=== PATIENT | female | born 1970 | race Caucasian/White ===

== ENCOUNTER → 2018-06-27 | Outpatient (CLI) | payer BC ==
[2018-06-27 10:38] LABS: ALANINE AMINOTRANSFERASE 32 U/L (0-55); ALBUMIN 4.4 GM/DL (3.2-4.5); ALKALINE PHOSPHATASE 52 U/L (40-136); BILIRUBIN,TOTAL 0.9 MG/DL (0.1-1.0); BUN/CREATININE RATIO 18; CALCIUM 10.4 MG/DL (8.5-10.1); CARBON DIOXIDE 21 MMOL/L (21-32); CHLORIDE 105 MMOL/L (98-107); CHOLESTEROL 213 MG/DL (< 200); CREATININE SERUM 0.76 MG/DL (0.60-1.30); GFR ESTIMATED > 60; GLUCOSE 90 MG/DL (70-105); HDL CHOLESTEROL 74 MG/DL (40-60); POTASSIUM 3.4 MMOL/L (3.6-5.0); SODIUM 138 MMOL/L (135-145); TOTAL PROTEIN 7.2 GM/DL (6.4-8.2); TRIGLYCERIDES 74 MG/DL (<150); VLDL CHOLESTEROL 15 MG/DL (5-40)
== END ==
LOC: LAB 09:47
PROVIDERS: ATTEND Nurse Practitioner
DX: I10 Essential (primary) hypertension (principal)
CPT/HCPCS: 36415; 80053; 80061

== ENCOUNTER → 2020-01-20 | Outpatient (CLI) | payer BC ==
--- NOTE | 2020-01-20 11:28 | Diagnostic Imaging Report ---
Indication: Lifting injury, resultant pop and pain. No lung contusion, pneumothorax or hemothorax. No free air beneath the right diaphragm. No identifiable rib fracture, deformity or bony destructive process. Impression: Normal right rib series Dictated by: Dictated on workstation # [id number]
== END ==
LOC: RAD 10:42
PROVIDERS: ATTEND Family Medicine
DX: R07.9 Chest pain, unspecified (principal)
CPT/HCPCS: 71100

== ENCOUNTER 2020-08-21 08:56 | Outpatient (RCR) | payer BC ==
[~2020-08-21] VITALS: Ht 162.6 cm; Wt 90.9 kg
[2020-08-21] MEDS ORDERED: MV-M1TAB57 PO (12:40)
[2020-08-21] MEDS ORDERED: MONT10TA32 PO (12:40)
[2020-08-21] MEDS ORDERED: ASCO-262 PO (12:40)
[2020-08-21] MEDS ORDERED: BCP PO (12:40)
[2020-08-21] MEDS ORDERED: CHOL-34 PO (12:40)
[2020-08-21] MEDS ORDERED: PANT20TA18 PO (12:40)
[2020-08-21] MEDS ORDERED: TRIA1TAB3 PO (12:40)
[2020-08-21] MEDS ORDERED: LISI10TA25 PO (12:40)
== END 2020-08-21 12:44 | disposition home or self-care (01) ==
LOC: PREOP 08:56 → EDSTATUS 13:00
PROVIDERS: ATTEND Podiatrist Foot & Ankle Surgery
DX: Z01.818 Encounter for other preprocedural examination (principal)

== ENCOUNTER 2020-08-27 07:33 | Day surgery (SDC) | payer BC ==
[2020-08-27] VITALS (7 sets, daily range): BP systolic 124–163; BP diastolic 57–70
[~2020-08-27] VITALS: Ht 162 cm; Wt 90.9 kg
[~2020-08-27 07:33] MED LIST: ASCO-262 PO; BCP PO; CHOL-34 PO; LISI10TA25 PO; MONT10TA32 PO; MV-M1TAB57 PO; PANT20TA18 PO; TRIA1TAB3 PO
[2020-08-27] MEDS ORDERED: ceFAZolin INJECTION 1,000 MG in WATER (STERILE) FOR INJECTION 10 ML IV ONE (08:00)
[2020-08-27] MEDS ORDERED: LACTATED RINGERS 1,000 ML IV PRN (08:00)
[2020-08-27] MEDS ORDERED: SCOPOLAMINE 1.5 MG (TRANSDERM-SCOP) PATCH TOP ONE (08:15)
[2020-08-27] MEDS ORDERED: FAMOTIDINE 20MG/2ML IV (PEPCID) IV ONE (08:15)
[2020-08-27] MEDS ORDERED: ONDANSETRON 4 MG/2 ML (SDV) Z0FRAN ONE ×2 (08:18→10:21)
[2020-08-27] MEDS ORDERED: BUPIVACAINE 0.5% 30 ML (SENSORCAINE) VIAL ONE (08:56)
[2020-08-27] MEDS ORDERED: LIDOCAINE 1% INJ 20 ML 20 ML VIAL ONE (08:56)
[2020-08-27] MEDS ORDERED: MIDAZOLAM 2 MG/2 ML (VERSED) VIAL ONE (08:59)
[2020-08-27] MEDS ORDERED: PROPOFOL INJECTION 50 ML IV ONE ×2 (08:59→10:21)
[2020-08-27] MEDS ORDERED: fentaNYL INJ 100 MCG/2 ML AMP ONE (09:00)
[2020-08-27] MEDS ORDERED: LIDOCAINE PF 2% 5 ML (XYLOCAINE) VIAL ONE (10:21)
--- NOTE | 2020-08-27 10:40 | Progress Note-Pre Operative ---
Pre-Operative Progress Note H&P Reviewed The H&P was reviewed, patient examined and no changes noted. Date Seen by Provider: Aug 27, 2020 Time Seen by Provider: : Date H&P Reviewed: Aug 27, 2020 Time H&P Reviewed: :30 Pre-Operative Diagnosis: Hallux Valgus right LU LONG DPM Aug 27, 2020 10:40
--- NOTE | 2020-08-27 10:41 | Progress Note-Post Operative ---
Post-Operative Progess Note Surgeon (s)/Drywall Sander (s) Surgeon LU LONG DPM Drywall Sander: none Pre-Operative Diagnosis Hallux Valgus right Post-Operative Diagnosis Same Procedure & Operative Findings Date of Procedure 08/27/20 Procedure Performed/Findings Ryan-Obdulio bunionectomy, right Anesthesia Type MAC Estimated Blood Loss Estimated blood loss (mL): Minimal Specimens/Packing Specimens Removed None LU LONG DPM Aug 27, 2020 10:41
[2020-08-27] MEDS ORDERED: CEPH500C PO (10:44)
[2020-08-27] MEDS ORDERED: ACHD5005 PO (10:44)
[2020-08-27] MEDS ORDERED: HYDROmorphone 2 MG/ML VIAL (DILAUDID) IV ONE (10:45)
[2020-08-27] MEDS ORDERED: HYDROcodone/APAP 5 MG/325 MG (LORTAB) TAB PO PRN (10:45)
[2020-08-27] MEDS ORDERED: LACTATED RINGERS 1,000 ML IV SCH (10:45)
--- NOTE | 2020-08-27 11:11 | Diagnostic Imaging Report ---
INDICATION: Right foot surgery. Followup. FINDINGS: AP and lateral views of the right foot show postop changes from osteotomy of the head of the 1st metatarsal with bunion repair. Orthopedic hardware is visible. The bones are in good alignment. IMPRESSION: Good alignment of the 1st digit following osteotomy. Dictated by: Dictated on workstation # [id number]
[2020-08-27] MEDS: ONDANSETRON 4 MG/2 ML (SDV) Z0FRAN IVP PRN ×2 (11:26→11:27)
--- NOTE | 2020-08-27 12:12 | Physical Therapy Ortho Eval ---
PT Orthopedic Evaluation Type of Surgery Hallux Valgus right Prior Level of Function Current Living Status: Other Family Locomotion (Upon Admit): Independent Established Durable Medical Eq: Crutches knee scooter Subjective Entry Into Home: Stairs With Railing Steps Into Home: 2 (performed with minimal assist due to instabiity/education with patient and daughter on right foot flat for balance with ascending and descending step) Motor Control Motor Control: Motor Control WNL ROM ROM: WFL, except focal deficit Strength Strength: WFL Transfer SCALE: Activities may be completed with or without assistive devices. 2-Mojcnhriqc-zbqktrg completes the activity by him/herself with no assistance from a helper. 5-Set-up or Clean-up Assistance-helper sets up or cleans up; patient completes activity. [place] assists only prior to or following the activity. 4-Supervision or Touching Assistance-helper provides verbal cues and/or touching/steadying and/or contact guard assistance as patient completes activity. Assistance may be provided throughout the activity or intermittently. 3-Partial/Moderate Assistance-helper does LESS THAN HALF the effort. [place] lifts, holds or supports trunk or limbs, but provides less than half the effort. 2-Substantial/Maximal Assistance-helper does MORE THAN HALF the effort. [place] lifts or holds trunk or limbs and provides more than half the effort. 5-Udxeamwys-eqdahb does ALL the effort. Patient does none of the effort to complete the activity. Or, the assistance of 2 or more helpers is required for the patient to complete the activity. If activity was not attempted, code reason: 7-Patient Refused. 9-Not Applicable-not attempted and the patient did not perform the activity before the current illness, exacerbation or injury. 10-Not Attempted due to Environmental Limitations-(lack of equipment, weather restraints, etc.). 88-Not Attempted due to Medical Conditions or Safety Concerns. Transfers (B, C, W/C) (QC): 3 (for safety with gait belt) Gait Gait Assistive Device: Crutches Right Lower Extremity: Right Weight Bearing Status RLE: Non Weight Bearing Left Lower Extremity: Left Weight Bearing Status LLE: Full Weight Bearing Gait (QC): 3 Distance (QC): 3=150 ft Distance: 150' Gait Level of Assist: 3 Summary/Comments VC's for crutch placement and NWB right foot with foot flat at rest for stability/balance Treatment Rendered Treatment: Step Train Assessment/Goals Goal Time Frame: 1 Visit Plan Treatment Plan: Discharge, Education, Gait, Safety PT/Family Agrees to Plan: Yes Time Time In: 1145 Time Out: 1203 Total Billed Treatment Time: 18 Billed Treatment Time 1 visit [facility] 18 min LEONILA PARHAM PT Aug 27, 2020 12:12
--- NOTE | 2020-08-27 17:50 | OPERATIVE REPORT ---
DATE OF SERVICE: 08/27/2020 SURGEON: Lu Long DPM. PREOPERATIVE DIAGNOSIS: Hallux abductovalgus metatarsal primus varus, right. POSTOPERATIVE DIAGNOSIS: Hallux abductovalgus metatarsal primus varus, right. PROCEDURE: Modified Ryan-Obdulio bunionectomy, right. WOUND CLASS: Clean. ANESTHESIA: Monitored anesthesia care. HEMOSTASIS: Pneumatic ankle tourniquet at 250 mmHg. INDICATIONS: This 50-year-old female presents complaining of a painful right bunion. Conservative therapy is met with unsatisfactory results and the patient is agreeable to surgical intervention after risks and complications were discussed at length. No guarantees were extended to the patient and she is willing to proceed. DESCRIPTION OF PROCEDURE: The patient was brought back to the operating table, placed in secure supine position. Utilizing aseptic technique, anesthesia was achieved utilizing 17 mL of 1:1 mixture of 1% Xylocaine, 0.5% Marcaine injected in a Hyman block. The ankle tourniquet was placed on the right lower extremity over several layers of padding. Appropriate time-out was performed prior to injection. The right foot was then prepped and draped in normal sterile manner. The right foot was then elevated, allowed to exsanguinate after which the tourniquet was inflated to 250 mmHg. Attention was then directed to the dorsal aspect of the right first metatarsophalangeal joint where a 6 cm longitudinal linear incision was created. The incision was deepened in the same plane with great care to identify and retract all vital neurovascular structures. Only necessary blood vessels were cauterized as encountered. The incision was deepened down to capsule where a longitudinal capsulotomy was performed. Once the capsular tissue was reflected, a hypertrophic medial eminence was noted to the first metatarsal head, which was resected utilizing a power sagittal saw. Next, attention was then directed to the intermetatarsal space where a lateral release was performed to the first metatarsophalangeal joint. Utilizing a 15 blade, a lateral capsulorrhaphy was performed as well as release of the conjoint tendon of the adductor hallucis and release was performed to the lateral sesamoidal ligament. The hallux was then forcibly adducted releasing any fibers holding in its abnormal position. Attention was redirected to the medial aspect of the first metatarsal head where a Chevron-type osteotomy was performed. The power sagittal saw was utilized to create the osteotomy and the capital fragment was translocated laterally and fixated in its corrected position utilizing a 0.062 threaded K-wire driven from dorsal proximal to plantar distal across the osteotomy. Excellent bony apposition and fixation was appreciated at this time and the K-wire was cut flush with the dorsal aspect of the first metatarsal head. The head was further contoured and smoothed with a power sagittal saw and a power bur. The wound was flushed with copious amounts of normal saline. Attention was then directed to the proximal phalanx of the right hallux where subperiosteal dissection was performed. Utilizing a power sagittal saw, a wedge of bone was resected with the base medial and the lateral cortices held intact. Two car pilot holes were created at the dorsal medial aspect of the osteotomy where a 28-gauge monofilament wire was then passed through the car pilot hole securing the osteotomy in a closed position. Excellent apposition and fixation was appreciated at this time. The wounds were flushed with copious amounts of normal saline throughout the procedure. Closure was then performed in layers. Deep closure was performed with 3-0 Vicryl, superficial closure was performed with 4-0 Vicryl and skin closure with 4-0 Prolene in a horizontal mattress type stitch. The tourniquet was released noting appropriate cap refill time to all digits of the right foot. Postoperative injection consisted of 10 mg dexamethasone into the first intermetatarsal space. Postoperative dressing consisted of Betadine soaked Adaptic, sterile 4 x 4, sterile Kerlix all secured with a Coban wrap. The patient tolerated the anesthesia and procedure well, was transported from the operating room to the recovery area with vital signs stable and vascular status intact to all digits of the right foot. The patient is to follow up in my office in 10 days' period of time. In the meantime, she is to be nonweightbearing with crutches on the right lower extremity. She was given a prescription for Keflex as well as Vicodin. Job ID: [id number] DocumentID: [id number] Dictated Date: 08/27/2020 10:50:59 Gravel Truck Driver Date: 08/27/2020 17:49:51 Dictated By: LU LONG DPM
== END 2020-08-27 12:10 | disposition home or self-care (01) ==
LOC: SDC 07:33
PROVIDERS: ATTEND Podiatrist Foot & Ankle Surgery
DX: M20.31 Hallux varus (acquired), right foot (principal); I10 Essential (primary) hypertension; J45.909 Unspecified asthma, uncomplicated; K21.9 Gastro-esophageal reflux disease without esophagitis; Z91.040 Latex allergy status; Z79.899 Other long term (current) drug therapy
CPT/HCPCS: 73620; 84703; 87081

== ENCOUNTER → 2020-10-04 | Outpatient (CLI) | payer BC ==
[~2020-10-04] MED LIST changes: +ACHD5005 PO; +CEPH500C PO
--- NOTE | 2020-10-04 15:11 | Diagnostic Imaging Report ---
PROCEDURE: US right lower extremity venous. TECHNIQUE: Multiple real-time grayscale images were obtained over the right lower extremity in various projections. Additional spectral analysis and color Doppler duplex images were also obtained. INDICATION: Right lower extremity edema, recent surgery. FINDINGS: The right lower extremity femoropopliteal deep venous system showed normal color flow, normal waveforms, and normal compressibility. No deep or superficial thrombi are identified, and no mass or fluid collection demonstrated. IMPRESSION: Normal negative unilateral right lower extremity venous Doppler and ultrasound exam. Dictated by: Dictated on workstation # [id number]
== END ==
LOC: RAD 15:15
PROVIDERS: ATTEND Nurse Practitioner Family
DX: R60.0 Localized edema (principal)

== ENCOUNTER → 2021-03-18 | Outpatient (CLI) | payer OTHER, BC ==
[~2021-03-18] MED LIST changes: +MONT-40 PO; -MONT10TA32 PO
--- NOTE | 2021-03-18 15:40 | Diagnostic Imaging Report ---
INDICATION: Left knee pain Three views of the left knee show no fracture, dislocation or other acute abnormalities. IMPRESSION: Negative left knee. Dictated by: Dictated on workstation # [id number]
== END ==
LOC: RAD 14:45
PROVIDERS: ATTEND Family Medicine
DX: M25.562 Pain in left knee (principal)
CPT/HCPCS: 73562

== ENCOUNTER → 2022-07-22 | Outpatient (CLI) | payer BC, OTHER ==
--- NOTE | 2022-07-22 15:18 | Diagnostic Imaging Report ---
PROCEDURE: US Non-ob pelvis comp/trans. INDICATION: POSTMENOPAUSAL BLEEDING TECHNIQUE: Multiple real time campuzano scale sonographic images were obtained of the pelvis transabdominally and endovaginally. CORRELATION STUDY: None FINDINGS: UTERUS: 8.3 x 3.5 x 5 cm. The uterus appearing unremarkable. ENDOMETRIUM: 1.1 cm. Endometrium is considered abnormally thickened in a postmenopausal patient. RIGHT OVARY: 2.5 x 1.5 x 2.8 cm. LEFT OVARY: 3.5 x 2.2 x 2.7 cm. Hypoechoic masses compatible with cysts of both ovaries. On the right 1.4 x 1.3 x 2.1 cm. On the left, 1.8 x 1.8 x 2.2 cm. No significant free pelvic fluid. IMPRESSION: 1. Abnormally thickened endometrium in a postmenopausal patient with abnormal uterine bleeding. Endometrial malignancy needs to be excluded. Dictated by: Dictated on workstation # [id number]
== END ==
LOC: RAD 13:21
PROVIDERS: ATTEND Nurse Practitioner Family
DX: R93.89 Abnormal findings on diagnostic imaging of other specified body structures (principal); N95.0 Postmenopausal bleeding
CPT/HCPCS: 76830; 76856

== ENCOUNTER 2022-08-14 16:26 | Outpatient (CLI) | payer OTHER ==
[~2022-08-14] VITALS: Ht 162.6 cm; Wt 102.3 kg
[2022-08-14] MEDS ORDERED: CETI10CA PO (17:32)
[2022-08-14] MEDS ORDERED: ZINC50TA51 PO (17:32)
[2022-08-14] MEDS ORDERED: MEDR10TA9 PO (17:32)
[2022-08-14] MEDS ORDERED: LANS15CA5 PO (17:32)
[2022-08-14] MEDS ORDERED: VENL37.52 PO (17:32)
[2022-08-14] MEDS ORDERED: LACT1CAP72 PO (17:32)
== END 2022-08-14 17:52 | disposition home or self-care (01) ==
LOC: PREOP 16:26
PROVIDERS: ATTEND Obstetrics & Gynecology
DX: Z01.818 Encounter for other preprocedural examination (principal)

== ENCOUNTER 2022-08-18 07:38 | Day surgery (SDC) | payer OTHER ==
[~2022-08-18] VITALS: Ht 162.6 cm; Wt 102.3 kg
[2022-08-18] VITALS (12 sets, daily range): BP systolic 18–145; BP diastolic 56–120
[~2022-08-18 07:38] MED LIST changes: +CETI10CA PO; +LACT1CAP72 PO; +LANS15CA5 PO; +MEDR10TA9 PO; +VENL37.52 PO; +ZINC50TA51 PO
[2022-08-18] MEDS ORDERED: LACTATED RINGERS 1,000 ML IV PRN (07:45)
--- NOTE | 2022-08-18 07:56 | Progress Note-Pre Operative ---
Pre-Operative Progress Note Date H&P Reviewed: Aug 18, 2022 Time H&P Reviewed: 07:55 History & Physical: H&P Reviewed, No changes noted Pre-Operative Diagnosis: Postmenopausal bleeding thickened endometrium MARCIE RICK DO Aug 18, 2022 07:56
[2022-08-18] MEDS ORDERED: SCOPOLAMINE 1.5 MG (TRANSDERM-SCOP) PATCH TD ONE (08:10)
[2022-08-18] MEDS ORDERED: FAMOTIDINE 20MG/2ML IV (PEPCID) IVP ONE (08:10)
[2022-08-18] MEDS ORDERED: ONDANSETRON 4 MG/2 ML (SDV) Z0FRAN IVP ONE (08:10)
[2022-08-18] MEDS ORDERED: MIDAZOLAM 2 MG/2 ML (VERSED) VIAL ONE (08:12)
[2022-08-18] MEDS ORDERED: fentaNYL INJ 100 MCG/2 ML AMP ONE (08:12)
[2022-08-18] MEDS ORDERED: SCOPOLAMINE 1.5 MG (TRANSDERM-SCOP) PATCH ONE (08:24)
[2022-08-18] MEDS ORDERED: ONDANSETRON 4 MG/2 ML (SDV) Z0FRAN ONE ×2 (08:24→09:08)
[2022-08-18] MEDS ORDERED: FAMOTIDINE 20MG/2ML IV (PEPCID) ONE (08:24)
[2022-08-18 08:29] LABS: BASOPHILS # (AUTO) 0.1 10^3/uL (0.0-0.1); BASOPHILS % (AUTO) 1 % (0-10); EOSINOPHILS # (AUTO) 0.2 10^3/uL (0.0-0.3); EOSINOPHILS % (AUTO) 2 % (0-10); HEMATOCRIT 42 % (35-52); HEMOGLOBIN 14.4 g/dL (11.5-16.0); LYMPHOCYTES % (AUTO) 26 % (12-44); MEAN CORPUSCULAR HEMOGLOBIN 30 pg (25-34); MEAN CORPUSCULAR HGB CONC 34 g/dL (32-36); MEAN CORPUSCULAR VOLUME 88 fL (80-99); MEAN PLATELET VOLUME 9.7 fL (9.0-12.2); MONOCYTES # (AUTO) 0.6 10^3/uL (0.0-1.0); MONOCYTES % (AUTO) 8 % (0-12); NEUTROPHILS # (AUTO) 4.7 10^3/uL (1.8-7.8); NEUTROPHILS % (AUTO) 62 % (42-75); PLATELET COUNT 247 10^3/uL (130-400); WHITE BLOOD COUNT 7.6 10^3/uL (4.3-11.0)
[2022-08-18] MEDS ORDERED: RT-ALBUINH INH (08:39)
[2022-08-18] MEDS ORDERED: proPOfol 200 MG/20 ML (DIPRIVAN) VIAL IV ONE (09:08)
[2022-08-18] MEDS ORDERED: PROPOFOL INJECTION 50 ML IV ONE (09:08)
[2022-08-18] MEDS ORDERED: LIDOCAINE PF 2% 5 ML (XYLOCAINE) VIAL ONE (09:08)
[2022-08-18] MEDS ORDERED: KETOROLAC 30 MG/ML VIAL ONE (09:08)
--- NOTE | 2022-08-18 09:16 | Operative Report ---
Operative Report Date of Procedure/Surgery Aug 18, 2022 Surgeon (s) GLORIA LEE DO Copy Manager (s): NA Post-Operative Diagnosis Postmenopausal bleeding endometrial thickening Procedure Performed Dilation and curettage with hysteroscopy Description of Procedure Anesthesia Type: General (LMA) Estimated blood loss (mL): Minimal Specimen(s) collected/removed Endometrial curettings Description of the Procedure Informed consent was obtained and signed and patient was taken to the OR [facility]. 2 placed under general LMA anesthesia placed in the dorsolithotomy position prepped and draped usual sterile fashion. A timeout was performed. A pelvic exam under anesthesia revealed a normal size slightly retroverted uterus midline no adnexal masses. The bladder was drained for 50 cc. A weighted speculum was placed into the posterior vaginal vault and single-tooth tenaculum was used to grasp the internal lip of the cervix. Uterus sounded to 8 cm. The cervical os was dilated to allow passage of the hysteroscope the hysteroscope using sterile water as a fluid medium was entered into the uterine cavity. The uterine cavity was inspected there was noted to be some cervical polyps and the endometrial cavity noted to have trabeculations and scar tissue. Both ostia were visualized. The hysteroscope was then removed and endometrial curettings were obtained and there was a good uterine cry. The single-tooth and weighted speculum were removed and the endometrial curettings were sent to pathology for further analysis. The patient tolerated the procedure well and was taken to recovery room in stable condition. All my counts were correct x2. EBL minimal Fluids 700 Urine output 50 Fluid and 750 fluids out 550 = 200 difference Findings of the Procedure Atrophic tissue with scarring and trabeculations both ostia visualized. Allergies and Home Medications Allergies Coded Allergies: latex (Verified Allergy, Unknown, Rash, 08/14/22) Patient Home Medication List Home Medication List Reviewed: Yes Albuterol Sulfate (Ventolin Hfa) 1 Puff Puff, 2 PUFF INH Q4H, (Reported) Entered as Reported by: AUSTIN BRINK on 08/18/22 0839 Last Action: Reviewed Ascorbate Calcium (Vitamin C) 500 Mg Tablet, 500 MG PO DAILY, (Reported) Entered as Reported by: TOMER BUSTILLO on 08/21/20 1240 Last Action: Reviewed Cetirizine HCl (Zyrtec) 10 Mg Capsule, 10 MG PO DAILY, (Reported) Entered as Reported by: Negin Rodriguez on 08/14/221731 Last Action: Reviewed Cholecalciferol (Vitamin D3) (Vitamin D3) 25 Mcg Tablet, 25 MCG PO DAILY, (Reported) Entered as Reported by: TOMER BUSTILLO on 08/21/201239 Last Action: Reviewed Ibuprofen (Ibuprofen) 600 Mg Tablet, 600 MG PO Q6H Prescribed by: Gloria Lee on 08/18/22917 Last Action: Reviewed Lactobacillus Combo No.10 (Probiotic) 20 Billion Cell Capsule, 1 EACH PO DAILY, (Reported) Entered as Reported by: Negin Rodriguez on 08/14/221731 Last Action: Reviewed Lansoprazole (Lansoprazole) 15 Mg Capsule.dr, 15 MG PO DAILY, (Reported) Entered as Reported by: Negin Rodriguez on 08/14/221731 Last Action: Reviewed Lisinopril (Lisinopril) 10 Mg Tablet, 10 MG PO DAILY, (Reported) Entered as Reported by: TOMER BUSTILLO on 08/21/201239 Last Action: Reviewed Medroxyprogesterone Acetate (Medroxyprogesterone Acetate) 10 Mg Tablet, 10 MG PO DAILY, (Reported) Entered as Reported by: Negin Rodriguez on 08/14/221731 Last Action: Reviewed Montelukast Sodium (Montelukast Sodium) 10 Mg Tablet, 10 MG PO DAILY, (Reported) Entered as Reported by: TOMER BUSTILLO on 08/21/201239 Last Action: Reviewed Mv-Mn/Folic Acid/Calcium/Vit K (Women's 50 Plus Multivit Tab) 1 Each Tablet, 1 EACH PO DAILY, (Reported) Entered as Reported by: TOMER BUSTILLO on 08/21/201239 Last Action: Reviewed Triamterene/Hydrochlorothiazid (Triamterene-Hctz 37.5-25 mg Tb) 1 Each Tablet, 1 EACH PO DAILY, (Reported) Entered as Reported by: TOMER BUSTILLO on 08/21/201239 Last Action: Reviewed Venlafaxine HCl (Effexor Xr) 37.5 Mg Cap.er.24h, 75 MG PO DAILY, (Reported) Entered as Reported by: Negin Rodriguez on 08/14/221731 Last Action: Reviewed Zinc Amino Acid Chelate (Zinc) 50 Mg Tablet, 50 MG PO DAILY, (Reported) Entered as Reported by: Negin Rodriguez on 08/14/22 8862 Last Action: Reviewed Discontinued Medications Cephalexin (Cephalexin) 500 Mg Capsule, 1 CAP PO TID Discontinued Reason: No Longer Taking Prescribed by: LU LONG on 08/27/20 1044 Hydrocodone/Acetaminophen (Hydrocodone-Acetamin 5-325 mg) 1 Each Tablet, 1 TAB PO Q4H PRN for PAIN-MODERATE (5-7) Discontinued Reason: No Longer Taking Prescribed by: LU LONG on 08/27/20 1044 Pantoprazole Sodium (Pantoprazole Sodium) 20 Mg Tablet.dr, 20 MG PO DAILY, (Reported) Discontinued Reason: No Longer Taking Entered as Reported by: TOMER BUSTILLO on 08/21/20 1240 [Bcp] , 1 TAB PO DAILY, (Reported) Discontinued Reason: No Longer Taking Entered as Reported by: TOMER BUSTILLO on 08/21/20 1240 GLORIA LEE DO Aug 18, 2022 09:16
[2022-08-18] MEDS ORDERED: IBUP-1773 PO (09:18)
--- NOTE | 2022-08-18 09:19 | Discharge Inst-Simple/Standard ---
Discharge Inst-Standard Reconcile Patient Problems Problems Reviewed?: Yes Discharge Medications New, Converted or Re-Newed RX: Transmitted to Pharmacy Patient Instructions/Follow Up Plan of Care/Instructions/FU: Follow-up in 1 week.Pelvic rest (nothing in the vagina no tampons sex or douching). Activity as Tolerated: Yes Discharge Diet: No Restrictions Return to The Hospital For: Increased pain, temperature over 100.4 F or increased bleeding MARCIE RICK DO Aug 18, 2022 09:19
[2022-08-18] MEDS ORDERED: morphine INJ 10 MG/ML 1ML (SYR OR VIAL) ONE (09:56)
[2022-08-18] MEDS ORDERED: morphine INJ 10 MG/ML 1ML (SYR OR VIAL) IVP ONE (10:00)
[2022-08-18] MEDS ORDERED: ONDANSETRON 4 MG/2 ML (SDV) Z0FRAN IVP PRN (10:00)
--- NOTE | 2022-08-18 10:01 | Anesthesia-General Post-Op ---
General Patient Condition Mental Status/LOC: Same as Preop Cardiovascular: Satisfactory Nausea/Vomiting: Absent Respiratory: Satisfactory Pain: Controlled Complications: Absent Post Op Complications Complications None Follow Up Care/Instructions Patient Instructions None needed. Anesthesia/Patient Condition Patient Condition Patient is doing well, no complaints, stable vital signs, no apparent adverse anesthesia problems. No complications reported per nursing. RAEGAN PIERRE CRNA Aug 18, 2022 10:01
== END 2022-08-18 12:20 | disposition home or self-care (01) ==
LOC: SDC 07:38
PROVIDERS: ATTEND Obstetrics & Gynecology
DX: N95.0 Postmenopausal bleeding (principal); N93.9 Abnormal uterine and vaginal bleeding, unspecified; N85.8 Other specified noninflammatory disorders of uterus; R93.89 Abnormal findings on diagnostic imaging of other specified body structures; E66.9 Obesity, unspecified; Z68.38 Body mass index [BMI] 38.0-38.9, adult; Z79.899 Other long term (current) drug therapy; Z79.52 Long term (current) use of systemic steroids
CPT/HCPCS: 36415; 84703; 85025; 87081